=== PATIENT | female | born 1945 | race Caucasian/White ===

== ENCOUNTER 2023-01-24 08:31 | Observation (INO) | payer MEDICARE, OTHER ==
[2023-01-23 14:37] LABS: BASOPHILS % 0.4 % (0.0-1.0); EOSINOPHILS # (AUTO) 0.2 (0.0-0.4); EOSINOPHILS % 1.4 % (0.0-6.0); HEMATOCRIT 44.1 % (34.2-44.1); HEMOGLOBIN 14.1 g/dL (12.0-16.0); LYMPHOCYTES # (AUTO) 2.6 (1.0-3.2); LYMPHOCYTES % 24.1 % (18.0-39.1); MEAN CORPUSCULAR HEMOGLOBIN 29.1 pg (28-32); MEAN CORPUSCULAR VOLUME 91.1 fL (81-99); MONOCYTES # (AUTO) 0.7 (0.2-0.8); MONOCYTES % 6.1 % (4.4-11.3); NEUTROPHILS # (AUTO) 7.2 (2.1-6.9); NEUTROPHILS % 67.6 % (38.7-80.0); PLATELET COUNT 285 x10e3/uL (140-360); RED BLOOD COUNT 4.84 x10e6/uL (3.6-5.1); RED CELL DISTRIBUTION WIDTH 13.8 % (11.7-14.4)
[2023-01-23 14:48] LABS: INR 0.93; PARTIAL THROMBOPLASTIN TIME 30.4 seconds (23.8-35.5)
[2023-01-23 14:54] LABS: ANION GAP 16.9 mmol/L (8-16); CALCIUM 9.8 mg/dL (8.4-10.2); POTASSIUM 3.9 mmol/L (3.5-5.1)
[~2023-01-24] VITALS: Ht 165.1 cm; Wt 64.9 kg
[~2023-01-24 08:31] MED LIST: ACETAMINOPHEN 1000 MG/100 ML 100 ML IV ONE; ASPIRIN81 MG PO; ATORVASTATIN CA10 MG PO; BIOTIN PLUS 5,1 EACH PO; BYSTOLIC5 MG PO; CLONIDINE HCL0.1 MG PO; DIOVAN160 MG PO; HYDROCHLOROTHIA25 MG PO; LIDOCAINE 1% W/EPINEPHRINE 20 ML VIAL ONE; LIDOCAINE HCL (LTA) 4 ML SOLN ONE; LYRICA75 MG PO; MAGNESIUM PO; MELOXICAM7.5 MG PO; OMEPRAZOLE40 MG PO; SUGAMMADEX SODIUM 200 MG/2 ML VIAL IV ONE; THROMBIN FOR SOLN 5,000 UNIT VIAL ONE; VITAMIN C500 MG PO; VITAMIN D3125 MCG PO; Vancomycin IV 1 GM VIAL ONE
[2023-01-24] MEDS ORDERED: LACTATED RINGER'S 1,000 ML ONE (08:52)
[2023-01-24] MEDS ORDERED: Vancomycin IV 1 GM VIAL ONE (08:52)
[2023-01-24] MEDS ORDERED: SODIUM CHLORIDE 0.9% 250ML 250 ML ONE (08:52)
[2023-01-24] MEDS ORDERED: HYDROCODON-ACE1 EA12 PO (11:44)
[2023-01-24] MEDS ORDERED: OXYCODONE/ACETAMINOPHEN 5-325 1 EACH TABLET PO PRN (11:45)
[2023-01-24] MEDS ORDERED: ZOLPIDEM TARTRATE 5 MG TAB PO PRN (11:45)
[2023-01-24] MEDS ORDERED: PROMETHAZINE HCL (IM) 25 MG/ML VIAL IM PRN (11:45)
[2023-01-24] MEDS ORDERED: MAGNESIUM/ALUMINUM/SIMETHICONE 30 ML UDC PO PRN (11:45)
[2023-01-24] MEDS ORDERED: CLONIDINE HCL 0.1 MG TAB PO PRN (11:45)
[2023-01-24] MEDS ORDERED: CEPACOL SORE THROAT LOZENGES PO PRN (11:45)
[2023-01-24] MEDS ORDERED: ACETAMINOPHEN 325 MG TAB PO PRN (11:45)
[2023-01-24] MEDS ORDERED: MORPHINE SULFATE 5 MG/ML VIAL IM PRN (11:45)
[2023-01-24] MEDS ORDERED: CARISOPRODOL 350 MG TAB PO PRN (11:45)
[2023-01-24] MEDS ORDERED: FENTANYL CITRATE/PF 100MCG/2 ML INJ ONE ×2 (11:57→13:08)
[2023-01-24] MEDS ORDERED: ROCURONIUM BROMIDE 10 MG/ML 5ML VIAL IV ONE (12:36)
[2023-01-24] MEDS ORDERED: ONDANSETRON HCL INJ 2MG/ML 2ML 2 MG/ML VIAL ONE (12:36)
[2023-01-24] MEDS ORDERED: SEVOFLURANE INHAL SOLN 250 ML PEN BTL ONE (12:36)
[2023-01-24] MEDS ORDERED: POVIDONE IODINE 0.05% 0.05 % ML PO ONE (12:36)
[2023-01-24] MEDS ORDERED: LIDOCAINE HCL 2% LOCAL INJ 5 ML SDV VIAL INJ ONE (12:36)
[2023-01-24] MEDS ORDERED: PROPOFOL IV EMULSION 10 MG/ML 20 ML VIAL ONE (12:36)
[2023-01-24] MEDS ORDERED: DEXAMETHASONE SOD PHOS INJ 4 MG/ML SDV ONE (12:36)
[2023-01-24] MEDS: LACTATED RINGER'S 1,000 ML IV SCH ×2 (16:11→20:05)
[2023-01-24] MEDS: ONDANSETRON HCL INJ 2MG/ML 2ML 2 MG/ML VIAL IV PRN (16:25)
[2023-01-24] MEDS: HYDROMORPHONE 2MG/ML 2 MG/ML ML IV PRN (16:26)
[2023-01-24 16:44] VITALS: BP 131/71; PULSE 64; RESP 17; TEMP 97.7
[2023-01-24 16:46] VITALS: BP 131/71; PULSE 64; RESP 17; TEMP 97.7; O2SAT 97
[2023-01-24 20:00] VITALS: BP 138/75; PULSE 65; RESP 17; TEMP 98; O2SAT 96
[2023-01-24] MEDS ORDERED: ATORVASTATIN 10 MG TAB PO SCH (21:00)
[2023-01-24] MEDS: Vancomycin IV 1 GM in SODIUM CHLORIDE 0.9% 250ML 250 ML IV SCH (21:21)
[2023-01-25] MEDS: LACTATED RINGER'S 1,000 ML IV SCH ×2 (04:25→12:45)
[2023-01-25 05:00] VITALS: BP 129/66; PULSE 86; RESP 18; TEMP 98.5; O2SAT 96
[2023-01-25] MEDS: HYDROMORPHONE 2MG/ML 2 MG/ML ML IV PRN (06:31)
[2023-01-25 08:30] VITALS: BP 152/72; PULSE 56; RESP 20; TEMP 97.6; O2SAT 97
[2023-01-25] MEDS: ONDANSETRON HCL INJ 2MG/ML 2ML 2 MG/ML VIAL IV PRN (08:43)
[2023-01-25 08:45] VITALS: BP 152/72; PULSE 56; RESP 20; TEMP 97.6; O2SAT 97
[2023-01-25] MEDS: Vancomycin IV 1 GM in SODIUM CHLORIDE 0.9% 250ML 250 ML IV SCH (08:47)
[2023-01-25] MEDS ORDERED: NEBIVOLOL HCL 2.5 MG TABLET PO SCH (09:00)
[2023-01-25] MEDS ORDERED: PANTOPRAZOLE SOD 40 MG TABEC PO SCH (09:00)
[2023-01-25] MEDS ORDERED: HYDROCHLOROTHIAZIDE 25 MG TAB PO SCH (09:00)
[2023-01-25] MEDS ORDERED: VALSARTAN 160 MG TAB PO SCH (09:00)
[2023-01-25] MEDS ORDERED: ASCORBIC ACID 500 MG TAB PO SCH (09:00)
[2023-01-25] MEDS ORDERED: ASPIRIN 81 MG CHEW TAB PO SCH (09:00)
[2023-01-25] MEDS ORDERED: PREGABALIN 75 MG CAP PO SCH (09:00)
[2023-01-25 11:33] VITALS: BP 155/71; PULSE 61; RESP 20; O2SAT 99
== END 2023-01-25 13:35 | disposition home or self-care (01) ==
LOC: OR 08:31 → PACU V 11:40 → MED/SURG 13:40
PROVIDERS: ADMIT Neurological Surgery; ATTEND Neurological Surgery
DX: M47.12 Other spondylosis with myelopathy, cervical region (principal); M48.02 Spinal stenosis, cervical region; I10 Essential (primary) hypertension; E78.2 Mixed hyperlipidemia; I44.7 Left bundle-branch block, unspecified; Z86.73 Personal history of transient ischemic attack (TIA), and cerebral infarction without residual deficits; Z01.810 Encounter for preprocedural cardiovascular examination; Z01.812 Encounter for preprocedural laboratory examination; Z01.818 Encounter for other preprocedural examination; Z11.52 Encounter for screening for COVID-19; Z79.82 Long term (current) use of aspirin; Z79.899 Other long term (current) drug therapy
CPT/HCPCS: 20931; 22551; 22845; 36415; 71046; 80048; 85025; 85610; 85730; 86850; 86900; 88304; 88311; 93005; C1713 ×2; G0378 ×2; J0131; J1100; J1170; J2001; J2405 ×2; J2704; J3010; J3370 ×2; J7050 ×2; J7121; S0164; 77003

== ENCOUNTER 2024-03-26 20:04 | Emergency (ER) | payer MEDICARE, BC ==
[~2024-03-26] VITALS: Ht 165.1 cm; Wt 64.9 kg
[~2024-03-26 20:04] MED LIST changes: -ACETAMINOPHEN 1000 MG/100 ML 100 ML IV ONE; +ACETAMINOPHEN-1 EAC4 PO; +CO Q10200 MG PO; +COREG3.125 MG PO; +HYDROCODON-ACE1 EA12 PO; -LIDOCAINE 1% W/EPINEPHRINE 20 ML VIAL ONE; -LIDOCAINE HCL (LTA) 4 ML SOLN ONE; +MULTI-VITAMIN1 EACH PO; -SUGAMMADEX SODIUM 200 MG/2 ML VIAL IV ONE; -THROMBIN FOR SOLN 5,000 UNIT VIAL ONE; -Vancomycin IV 1 GM VIAL ONE
[2024-03-26 20:10] VITALS: PULSE 70; RESP 18; TEMP 98.3
[2024-03-26 22:51] VITALS: BP 124/68; PULSE 68; RESP 18; TEMP 98.2; O2SAT 98
== END 2024-03-26 21:38 | disposition home or self-care (01) ==
LOC: FSED 20:20
DX: I87.8 Other specified disorders of veins (principal); I83.12 Varicose veins of left lower extremity with inflammation
CPT/HCPCS: 93971; 99283